=== PATIENT | male | born 1950 | race Caucasian/White ===

== ENCOUNTER 2016-10-29 22:06 | Inpatient (IN) | payer OTHER, MEDICARE ==
[~2016-10-29] VITALS: Ht 177.8 cm; Wt 95.3 kg
[~2016-10-29 22:06] MED LIST: ATOR20TA58 PO; LISI10TA2 PO; METF500T9 PO
[2016-10-29] MEDS ORDERED: ONDANSETRON PF 4 MG/2 ML VIAL. IV ONE (23:15)
[2016-10-29] MEDS ORDERED: CEFAZOLIN 1GM IVPB FOR OMNI 50 ML IV ONE (23:15)
[2016-10-29] MEDS ORDERED: FENTANYL PF 100 MCG/2 ML VIAL. IV ONE (23:15)
[2016-10-29] MEDS: IV NORMAL SALINE 1000ML BAG 1,000 ML IV SCH (23:23)
[2016-10-29 23:25] LABS: BASO # 0.1 x10^3/uL (0.0-0.2); BASO % 1 % (0-3); EOS % 1 % (0-3); HEMATOCRIT 49.5 % (39.0-53.0); HEMOGLOBIN 16.7 g/dL (13.0-17.5); LYMPH # 3.3 x10^3/uL (1.0-4.8); LYMPH % 44 % (24-48); MEAN CORPUSCULAR HEMOGLOBIN 31 pg (25-35); MEAN CORPUSCULAR HGB CONC 34 g/dL (31-37); MEAN CORPUSCULAR VOLUME 92 fL (79-100); MONO % 6 % (0-9); NEUT % 48 % (31-73); PLATELET COUNT 161 x10^3/uL (140-400); RED CELL DISTRIBUTION WIDTH 13.1 % (11.5-14.5); WHITE BLOOD COUNT 7.7 x10^3/uL (4.0-11.0)
[2016-10-29] MEDS ORDERED: ONDANSETRON PF 4 MG/2 ML VIAL. IV PRN (23:30)
[2016-10-29 23:34] LABS: CALCIUM 9.6 mg/dL (8.5-10.1); CREATININE 1.1 mg/dL (0.7-1.3); GFR 67.2; POTASSIUM 4.2 mmol/L (3.5-5.1)
[2016-10-29 23:35] LABS: PROTHROMBIN TIME PATIENT 12.6 SEC (11.7-14.0)
[2016-10-29 23:39] LABS: ALBUMIN 4.3 g/dL (3.4-5.0); ALBUMIN/GLOBULIN RATIO 1.3 (1.0-1.7); TOTAL BILIRUBIN 0.3 mg/dL (0.2-1.0); TOTAL PROTEIN 7.7 g/dL (6.4-8.2)
--- NOTE | 2016-10-29 23:44 | PHYS DOC ---
Past Medical History Past Medical History: Diabetes-Type II, High Cholesterol, Hypertension Past Surgical History: No Surgical History Additional Past Surgical Histo: prostate removed Alcohol Use: Heavy Drug Use: None Adult General Chief Complaint Chief Complaint: SHOULDER INJURY HPI HPI 66-year-old male states that he tripped over his steps fell down and landed on the greater tubercle of his left shoulder. He immediately felt an intense pain over his left clavicle. He states the pain was 10 over 10. He does state he was drinking alcohol today. He states the pain is much worse with any movement of his arm. [] Review of Systems Review of Systems Constitutional: Denies fever or chills [] Eyes: Denies change in visual acuity, redness, or eye pain [] HENT: Denies nasal congestion or sore throat [] Respiratory: Denies cough or shortness of breath [] Cardiovascular: No additional information not addressed in HPI [] GI: Denies abdominal pain, nausea, vomiting, bloody stools or diarrhea [] : Denies dysuria or hematuria [] Musculoskeletal: Left shoulder pain [] Integument: Denies rash or skin lesions [] Neurologic: Denies headache, focal weakness or sensory changes [] Endocrine: Denies polyuria or polydipsia [] Current Medications Current Medications Current Medications Medications (Trade) Dose Ordered Sig/Dino Start Time Stop Time Status Last Admin Dose Admin Cefazolin Sodium (Ancef 1gm Ivpb For Omni) 50 ml @ 100 mls/hr 1X ONCE 10/29/16 23:15 10/29/16 23:44 10/29/16 23:22 100 MLS/HR Fentanyl Citrate (Fentanyl 2ml Vial) 50 mcg 1X ONCE 10/29/16 23:15 10/29/16 23:16 DC 10/29/16 23:21 50 MCG Ondansetron HCl 4 mg 4 mg 1X ONCE 10/29/16 23:15 10/29/16 23:16 DC 10/29/16 23:21 4 MG Allergies Allergies Allergies Coded Allergies Type Severity Reaction Last Updated Verified Penicillins Allergy Intermediate 06/18/15 Yes Physical Exam Physical Exam Constitutional: Well developed, well nourished, moderate distress, non-toxic appearance. [] HENT: Normocephalic, atraumatic, bilateral external ears normal, oropharynx moist, no oral exudates, nose normal. [] Eyes: PERRLA, EOMI, conjunctiva normal, no discharge. [] Neck: Normal range of motion, no tenderness, supple, no stridor. [] Cardiovascular:Heart rate regular rhythm, no murmur [] Lungs & Thorax: Bilateral breath sounds clear to auscultation [] Abdomen: Bowel sounds normal, soft, no tenderness, no masses, no pulsatile masses. [] Skin: Small puncture wound over the fracture site near the left clavicle [] Back: No tenderness, no CVA tenderness. [] Extremities: Left clavicle is tender to palp with crepitus Neurologic: Alert and oriented X 3, normal motor function, normal sensory function, no focal deficits noted. [] Psychologic: Affect normal, judgement normal, mood normal. [] Current Patient Data Vital Signs Vital Signs Date Time Temp Pulse Resp B/P Pulse Ox O2 Delivery O2 Flow Rate FiO2 10/29/16 22:13 97.7 80 20 123/70 97 Room Air 97.7 Lab Values Laboratory Tests Test 10/29/16 22:00 White Blood Count 7.7x10^3/uL (4.0-11.0) Red Blood Count 5.40x10^6/uL (4.30-5.70) Hemoglobin 16.7g/dL (13.0-17.5) Hematocrit 49.5% (39.0-53.0) Mean Corpuscular Volume 92fL (79-100) Mean Corpuscular Hemoglobin 31pg (25-35) Mean Corpuscular Hemoglobin Concent 34g/dL (31-37) Red Cell Distribution Width 13.1% (11.5-14.5) Platelet Count 161x10^3/uL (140-400) Neutrophils (%) (Auto) 48% (31-73) Lymphocytes (%) (Auto) 44% (24-48) Monocytes (%) (Auto) 6% (0-9) Eosinophils (%) (Auto) 1% (0-3) Basophils (%) (Auto) 1% (0-3) Neutrophils # (Auto) 3.7x10^3uL (1.8-7.7) Lymphocytes # (Auto) 3.3x10^3/uL (1.0-4.8) Monocytes # (Auto) 0.5x10^3/uL (0.0-1.1) Eosinophils # (Auto) 0.1x10^3/uL (0.0-0.7) Basophils # (Auto) 0.1x10^3/uL (0.0-0.2) Prothrombin Time 12.6SEC (11.7-14.0) Prothrombin Time INR 1.0 (0.8-1.1) Sodium Level 142mmol/L (136-145) Potassium Level 4.2mmol/L (3.5-5.1) Chloride Level 106mmol/L (98-107) Carbon Dioxide Level 22mmol/L (21-32) Anion Gap 14 (6-14) Blood Urea Nitrogen 13mg/dL (8-26) Creatinine 1.1mg/dL (0.7-1.3) Estimated GFR (Cockcroft-Gault) 67.2 BUN/Creatinine Ratio 12 (6-20) Glucose Level 154mg/dL (70-99) H Calcium Level 9.6mg/dL (8.5-10.1) Total Bilirubin 0.3mg/dL (0.2-1.0) Aspartate Amino Transferase (AST) Pending Alanine Aminotransferase (ALT) 49U/L (16-63) Alkaline Phosphatase 54U/L (46-116) Total Protein 7.7g/dL (6.4-8.2) Albumin 4.3g/dL (3.4-5.0) Albumin/Globulin Ratio 1.3 (1.0-1.7) Ethyl Alcohol Level 162mg/dL (0-10) H Laboratory Tests 10/29/16 22:00 Laboratory Tests 10/29/16 22:00 EKG EKG [] Radiology/Procedures Radiology/Procedures [] Impressions: Clavicle x-ray: Comminuted displaced fracture distal third of the left clavicle Course & Med Decision Making Course & Med Decision Making Pertinent Labs and Imaging studies reviewed. (See chart for details) [ED course: Evaluation reveals 66-year-old male with an obvious open comminuted fracture of the left clavicle. Patient was placed in a sling. He was given fentanyl for pain which did help alleviate the discomfort. I spoke with Dr. Novoa who asked that we admit the patient and he would take him to the OR in the morning.] Dragon Disclaimer Dragon Disclaimer This electronic medical record was generated, in whole or in part, using a voice recognition dictation system. Departure Departure Impression: Primary Impression: Fracture, clavicle, shaft, open Disposition: 09 ADMITTED INPATIENT Admitting Physician: Bruce Okeefe Condition: STABLE Referrals: WILL KEANE DO (PCP) Problem Qualifiers Primary Impression: Fracture, clavicle, shaft, open Encounter type: initial encounter Fracture alignment: displaced Laterality : left Qualified Code: S42.022B - Displaced fracture of shaft of left clavicle, initial encounter for open fracture KLAUDIA COWAN DO Oct 29, 2016 23:44
[2016-10-30] VITALS (14 sets, daily range): BP systolic 110–147; BP diastolic 68–92
[2016-10-30] MEDS ORDERED: ICOS1CAP PO (00:26)
[2016-10-30] MEDS ORDERED: MULT-208 PO (00:27)
[2016-10-30] MEDS ORDERED: CHOL100013 PO (00:27)
--- NOTE | 2016-10-30 00:52 | ACF ---
Admission Forms Criteria MUSCULOSKELETAL DISEASE GRG Clinical Indications for Admission to Inpatient Care (Place 'X' for any and all applicable criteria): Hospital admission is needed for appropriate care of the patient because of ANY ONE of the following: [X]I. Fracture, dislocation, or other musculoskeletal injury requiring inpatient care(medical) as indicated by ANY ONE of the following(4)(5)(6)(7) [ ]a) Vertebral fracture requiring observation for instability or neurologic compromise (8) [ ]b) Compartment syndrome (proven or cannot be ruled out during observation level of care) (9) [ ]c) Limb-threatening injury [X]d) Major injury requiring inpatient stabilization such as traction initiation or external fixation before internal fixation or closure of complex or open fracture [ ]e) Major injury requiring inpatient treatment after emergency or observation level care (as appropriate) [ ]f) Severe pain requiring acute inpatient management [ ]II. Newly diagnosed or suspected bone, joint, or orthopedic device infection (e.g., osteomyelitis, septic arthritis) needing ANY ONE of the following(1)(2)(3) [ ]a) IV antibiotics that cannot be initiated in other than inpatient setting (e.g., patient too unstable or home infusion not available) [ ]b) Device removal or replacement [ ]c) Bone or soft tissue debridement [ ]d) Joint drainage (drain placement or repetitive aspirations) [ ]III. Severe rheumatologic disease (e.g., systemic lupus erythematosus, rheumatoid arthritis) with complications or comorbidities (Also use Optimal Recovery Care Criteria or General Recovery Criteria as appropriate on the basis of predominant condition), including ANY ONE of the following(10 )(11)(12)(13) [ ]a) Severe infection (e.g., GLUER MACHINE OPERATOR infection, sepsis) (14) [ ]b) Respiratory complications, including ANY ONE of the following: [ ]i) Pleural effusion with respiratory compromise [ ]ii) Pulmonary hypertension with congestive failure [ ]iii) Respiratory failure [ ]iv) Pulmonary hemorrhage (15) [ ]c) Hematologic disease, including ANY ONE of the following: [ ]i) Coagulopathy with bleeding [ ]ii) Thrombosis with hypercoagulable state [ ]iii) Thrombotic thrombocytopenic purpura [ ]d) Cerebritis with seizures, psychosis, or other severe abnormalities [ ]e) Vertebral destruction with monitoring needed for cervical myelopathy& possible respiratory compromise [ ]f) Exacerbation that requires inpatient treatment (e.g., intravenous immunosuppression) (16) [ ]g) Acute renal failure [ ]IV. Severe vasculitis with complications or comorbidities (Also use Optimal Recovery Care Criteria or General Recovery Criteria as appropriate on the basis of predominant condition), including ANY ONE of the following(11)(12)(17)(18)(19)(20) [ ]a) GLUER MACHINE OPERATOR vasculitis with seizures, psychosis, or other severe abnormalities (22) [ ]b) Renal failure (16) [ ]c) Pulmonary hemorrhage (15) [ ]d) Cerebral infarction [ ]e) Gastrointestinal ischemia [ ]f) Gangrene or threatened amputation [ ]g) Exacerbation that requires inpatient treatment (e.g., intravenous immunosuppression) (19)(21) [ ]V. Severe myopathy as indicated by ANY ONE of the following (28)(29) [ ]a) New onset of airway compromise or inability to swallow [ ]b) Respiratory deterioration with observation needed for impending respiratory failure [ ]c) Exacerbation that requires inpatient treatment (e.g., intravenous immunosuppression) [ ]. Severe gout (crystal arthropathy) as indicated by ANY ONE of the following (23)(24) [ ]a) Severe pain requiring acute inpatient management [ ]b) Exacerbation that requires inpatient treatment (e.g., intravenous treatment) [ ]VII.Rhabdomyolysis and ANY ONE of the following (25)(26)(27) [ ]a) Acute renal failure [ ]b) Need for intravenous hydration after emergency or observation level care (as appropriate) [ ]c) Inability to maintain oral hydration [ ]d) Change in mental status [ ]e) Electrolyte abnormality that remains after emergency or observation level care (as appropriate) [ ]VIII Post amputation complication, as indicated by ANY ONE of the following [ ]a) Infection [ ]b) Dehiscence [ ]c) Myodesis failure [ ]IX. Severe pain requiring acute inpatient management as indicated by ALL of the following (30)(31)(32) [ ]a) Continuous or frequent (e.g., every 2 to 4 hrs) parenteral analgesics required [A] [ ]b) Rapid improvement expected from treatment or acute intervention ( e.g., surgery, anesthesia procedure[B] [ ]X. Musculoskeletal Disease and ALL of the following: [ ]a) Symptom or finding for which emergency and observation care have failed or are not considered appropriate (Use General Criteria: Observation Care as appropriate) [ ]b) Presence of ANY ONE of the following [ ]i) A General Admission Criteria [ ]ii) A Pediatric General Admission Criteria The original [facility] content created by [facility] has been revised. The portions of the content which have been revised are identified through the use of italic text or in bold, and [facility] has neither reviewed nor approved the modified material. All other unmodified content is copyright [facility]. Please see references footnoted in the original [facility] edition 2016 Admission Criteria Met?: Yes DELMAR RAPP Oct 30, 2016 00:52
[2016-10-30] MEDS ORDERED: PNEUMOCOCCAL VAX SCREEN BY RX. MC ONE (01:00)
[2016-10-30] MEDS: FENTANYL PF 100 MCG/2 ML VIAL. IV PRN ×3 (01:25→07:33)
[2016-10-30] MEDS: IV NORMAL SALINE 1000ML BAG 1,000 ML IV SCH ×2 (07:35→17:03)
--- NOTE | 2016-10-30 08:05 | RAD ---
EXAM: Left clavicle, 2 views. HISTORY: Trauma. COMPARISON: None. FINDINGS: 2 views of the left clavicle are obtained. There is a comminuted fracture of the left mid clavicle with a shaft width displacement along the main fracture line. There is moderate acromioclavicular spurring. There is no shoulder dislocation. IMPRESSION: 1. Comminuted left clavicle fracture. 2. Moderate left acromioclavicular osteoarthritis.
[2016-10-30] MEDS ORDERED: FENTANYL PF 100 MCG/2 ML VIAL. ONE (08:25)
[2016-10-30] MEDS ORDERED: LIDOCAINE 2% 100 MG/5 ML DISP.SYRIN. ONE (08:25)
[2016-10-30] MEDS ORDERED: PROPOFOL 20 ML IV ONE (08:25)
[2016-10-30] MEDS ORDERED: BUPIVACAINE-EPI 0.25%-1:200000 MPF 30 ML VIAL. ONE ×2 (08:34→10:55)
[2016-10-30] MEDS ORDERED: PNEUMOC CONJ VACC 23-VALENT 0.5 ML VIAL. VAX IM ONE (09:00)
--- NOTE | 2016-10-30 09:00 | RAD ---
EXAM: Left ribs, 4 views. HISTORY: Pain. COMPARISON: None. FINDINGS: 4 views of the ribs are obtained. There are minimally displaced fractures of the left seventh and eighth ribs. There is a comminuted fracture of the left mid clavicle. There is moderate left acromioclavicular osteoarthritis. There is left lower lobe atelectasis or pleural-parenchymal scarring. There are degenerative changes throughout the thoracic spine. IMPRESSION: 1. Suspected minimally displaced left seventh and eighth rib fractures. Correlate for pain in this location. 2. Comminuted left mid clavicle fracture.
[2016-10-30] MEDS ORDERED: IV RINGERS,LACTATED 1000ML 1,000 ML IV SCH (09:14)
[2016-10-30] MEDS ORDERED: FENTANYL PF 100 MCG/2 ML VIAL. IV PRN ×3 (09:15→11:30)
[2016-10-30] MEDS ORDERED: HYDROMORPHONE 2 MG/ML VIAL. IV PRN (09:15)
[2016-10-30] MEDS ORDERED: MORPHINE SULFATE 2 MG/ML DISP.SYRIN. IV PRN ×3 (09:15→11:30)
[2016-10-30] MEDS ORDERED: LIDOCAINE 1% 1 ML SYRINGE. ID PRN (09:15)
[2016-10-30] MEDS ORDERED: ONDANSETRON PF 4 MG/2 ML VIAL. IV PRN ×2 (09:15→11:30)
[2016-10-30] MEDS ORDERED: PROCHLORPERAZINE 10 MG/2 ML VIAL. IV PRN (09:15)
[2016-10-30] MEDS ORDERED: CEFAZOLIN 1GM IVPB FOR OMNI 50 ML IV ONE (09:22)
[2016-10-30] MEDS ORDERED: SUCCINYLCHOLINE 200 MG/10 ML VIAL. ONE (09:24)
[2016-10-30] MEDS ORDERED: OXYCODONE/APAP 10/325 TABLET. PO PRN (09:45)
[2016-10-30] MEDS ORDERED: OXYCODONE/APAP 5/325 TABLET. PO PRN (09:45)
[2016-10-30] MEDS ORDERED: DEXAMETHASONE SOD PHOS 20 MG/5 ML VIAL. ONE (09:51)
[2016-10-30] MEDS ORDERED: DESFLURANE 61 TO 120 MINUTES IH ONE (09:51)
[2016-10-30] MEDS ORDERED: ACETAMINOPHEN INTRAVENOUS 100 ML IV ONE (09:56)
[2016-10-30] MEDS ORDERED: ONDANSETRON PF 4 MG/2 ML VIAL. ONE (10:19)
[2016-10-30] MEDS ORDERED: EPHEDRINE PF IN SALINE 50 MG/5 ML DISP.SYRIN. IV ONE (10:23)
--- NOTE | 2016-10-30 11:22 | PDOC ---
BRIEF OPERATIVE NOTE Date: Oct 30, 2016 Pre-Op Diagnosis Open left clavicle shaft fracture Post-Op Diagnosis Open left clavicle shaft fracture Procedure Performed Open treatment with internal fixation left clavicle shaft fracture. Debridement for open fracture including fragments of devitalized bone. Surgeon Sommer Cloth Mercerizer Operator Kirit CARRILLO Anesthesiologist [place] Anesthesia Type: General Blood Loss 50 mL Specimens Obtained None Findings Open left clavicle shaft fracture, Gustilo grade 1. Extensively comminuted clavicle shaft fracture. Complications None Additional Remarks Dictation [id number] MARIO DOWNEY MD Oct 30, 2016 11:22
[2016-10-30] MEDS ORDERED: POLYETHYLENE GLYCOL 3350 17 GM PACKET. PO PRN (11:30)
[2016-10-30] MEDS ORDERED: OXYCODONE IR 5 MG TABLET. PO PRN (11:30)
[2016-10-30] MEDS ORDERED: MORPHINE SULFATE 4 MG/ML DISP.SYRIN. IV PRN (11:30)
[2016-10-30] MEDS ORDERED: DEXTROSE 50% 25 GM / 50ML DISP.SYRIN. IV PRN (11:30)
[2016-10-30] MEDS ORDERED: HYDROCODONE/APAP 7.5/325MG TABLET. PO PRN (11:30)
--- NOTE | 2016-10-30 11:32 | PDOC2 ---
CONSULT Date of Consult Date of Consult DATE: 10/30/16 TIME: 11:22 Reason for Consult Reason for Consult: Open left clavicle shaft fracture Referring Physician Referring Physician: Omar Identification/Chief Complaint Chief Complaint Left shoulder pain, left rib pain Source Source: Chart review, Patient History of Present Illness Reason for Visit: This 66-year-old right-handed retired man who enjoys playing golf fell yesterday after having some alcoholic drinks. He had an open clavicle shaft fracture was admitted to the hospital placed on antibiotics. I recommended urgent surgery and discussed that with him this morning. He has a history of West Nile virus about 18 months ago with some left-sided shoulder stiffness, and left-sided weakness. He has been doing physical therapy previously for his left shoulder and we discussed that he should be able to resume that if we plate his clavicle shaft fracture. We discussed nonoperative treatment briefly, however with the grade 1 open fracture operative treatment is preferred so that we can do a careful irrigation, help prevent infection. Also with plate fixation it is likely he will be able to resume activity sooner and likely have a more satisfactory result. Past Medical History Cardiovascular: HTN, CT, Hyperlipidemia CENTRAL NERVOUS SYSTEM: Other (West Nile virus) Current Problem List Problem List Problems Medical Problems: (1) Fracture, clavicle, shaft, open Status: Acute Current Medications Current Medications Current Medications Fentanyl Citrate (Fentanyl 2ml Vial) 50 mcg 1X ONCE IV Last administered on 23:21; Start 10/29/16 at 23:15; Stop 10/29/16 at 23:16; Status DC Ondansetron HCl 4 mg 4 mg 1X ONCE IV Last administered on 10/29/16 23:21; Start 10/29/16 at 23:15; Stop 10/29/16 at 23:16; Status DC Cefazolin Sodium (Ancef 1gm Ivpb For Omni) 50 ml @ 100 mls/hr 1X ONCE IV Last administered on 10/29/16 23:22; Start 10/29/16 at 23:15; Stop 10/29/16 at 23:44; Status DC Ondansetron HCl (Zofran) 4 mg PRN Q8HRS PRN IV NAUSEA/VOMITING; Start 10/29/16 at 23:30; Stop 10/30/16 at 23:29 Fentanyl Citrate 50 mcg 50 mcg PRN Q1HR PRN IV PAIN Last administered on 07:33; Start 10/29/16 at 23:30; Stop 10/30/16 at 23:29 Sodium Chloride (Iv Sodium Chloride 0.9% 1000ml Bag) 1,000 ml @ 125 mls/hr Q8H IV Last administered on 10/30/16 07:35; Start 10/29/16 at 23:30; Stop at 23:29 Pneumococcal Polyvalent Vaccine (Do NOT chart on this placeholder) 1 each 1X ONCE MC ; Start 10/30/16 at 01:00; Stop 10/30/16 at 01:01; Status UNV Pneumococcal Polyvalent Vaccine 0.5 ml 0.5 ml ONCE ONCE VAX IM ; Start 10/30/16 at 09:00; Stop 10/30/16 at 09:01; Status DC Propofol (Diprivan) 20 ml @ As Directed STK-MED ONCE IV ; Start 10/30/16 at 08: 25; Stop 10/30/16 at 08:26; Status DC Lidocaine HCl 100 mg STK-MED ONCE .ROUTE ; Start 10/30/16 at 08:25; Stop at 08:26; Status DC Fentanyl Citrate (Fentanyl 2ml Vial) 100 mcg STK-MED ONCE .ROUTE ; Start at 08:25; Stop 10/30/16 at 08:26; Status DC Bupivacaine HCl/ Epinephrine Bitart (Sensorcaine-Epi 0.25%-1:993216 Mpf) 30 ml STK-MED ONCE .ROUTE Last administered on 10/30/16 10:09; Start 10/30/16 at 08: 34; Stop 10/30/16 at 08:35; Status DC Ondansetron HCl (Zofran) 4 mg PRN Q6HRS PRN IV Nausea; Start 10/30/16 at 09:15 ; Stop 10/31/16 at 09:14 Fentanyl Citrate (Fentanyl 2ml Vial) 25 mcg PRN Q5MIN PRN IV MILD PAIN; Start 10/30/16 at 09:15; Stop 10/31/16 at 09:14 Fentanyl Citrate (Fentanyl 2ml Vial) 50 mcg PRN Q5MIN PRN IV MODERATE PAIN; Start 10/30/16 at 09:15; Stop 10/31/16 at 09:14 Morphine Sulfate 1 mg 1 mg PRN Q10MIN PRN IV SEVERE PAIN; Start 10/30/16 at 09: 15; Stop 10/31/16 at 09:14 Lactated Ringer's (Iv Lactated Ringers) 1,000 ml @ 0 mls/hr Q0M IV ; Start at 09:14; Stop 10/30/16 at 21:13 Lidocaine HCl 2 ml 1X PRN PRN ID IV START; Start 10/30/16 at 09:15; Stop at 09:14 Hydromorphone HCl (Dilaudid) 0.5 mg PRN Q10MIN PRN IV SEV PAIN,Second choice; Start 10/30/16 at 09:15; Stop 10/31/16 at 09:14 Prochlorperazine Edisylate 5 mg 5 mg PACU PRN PRN IV NAUSEA; Start 10/30/16 at 09:15; Stop 10/31/16 at 09:14 Cefazolin Sodium (Ancef 1gm Ivpb For Omni) 50 ml @ As Directed STK-MED ONCE IV ; Start 10/30/16 at 09:22; Stop 10/30/16 at 09:23; Status DC Succinylcholine Chloride (Anectine) 200 mg STK-MED ONCE .ROUTE ; Start 10/30/16 at 09:24; Stop 10/30/16 at 09:25; Status DC Oxycodone/ Acetaminophen (Percocet 10/325) 1 tab PRN Q4HRS PRN PO pain; Start 10/30/16 at 09:45 Oxycodone/ Acetaminophen (Percocet 5/325) 1 tab PRN Q4HRS PRN PO PAIN; Start at 09:45 Morphine Sulfate 2 mg PRN Q2HR PRN IV PAIN; Start 10/30/16 at 09:45 Dexamethasone Sodium Phosphate (Decadron) 20 mg STK-MED ONCE .ROUTE ; Start at 09:51; Stop 10/30/16 at 09:52; Status DC Desflurane 60 ml 60 ml STK-MED ONCE IH ; Start 10/30/16 at 09:51; Stop 10/30/16 at 09:52; Status DC Acetaminophen (Ofirmev) 100 ml @ As Directed STK-MED ONCE IV ; Start 10/30/16 at 09:56; Stop 10/30/16 at 09:57; Status DC Ondansetron HCl (Zofran) 4 mg STK-MED ONCE .ROUTE ; Start 10/30/16 at 10:19; Stop 10/30/16 at 10:20; Status DC Ephedrine Sulfate 50 mg STK-MED ONCE IV ; Start 10/30/16 at 10:23; Stop at 10:24; Status DC Bupivacaine HCl/ Epinephrine Bitart (Sensorcaine-Epi 0.25%-1:135606 Mpf) 30 ml STK-MED ONCE .ROUTE ; Start 10/30/16 at 10:55; Stop 10/30/16 at 10:56; Status DC Atorvastatin Calcium (Lipitor) 20 mg HS PO ; Start 10/30/16 at 21:00 Lisinopril (Prinivil) 10 mg DAILY PO ; Start 10/30/16 at 12:00 Metformin HCl (Glucophage Xr) 500 mg DAILYWBKFT PO ; Start 10/30/16 at 12:00 Vitamin D (Vitamin D3) 1,000 unit DAILY PO ; Start 10/30/16 at 12:00 Multivitamins/ Calcium (Thera M Plus) 1 tab DAILY PO ; Start 10/30/16 at 12:00 Active Scripts Active Reported Multi-Day Vitamins (Multivitamin) 1 Each Tablet 1 Tab PO DAILY Vascepa (Icosapent Ethyl) 1 Gm Capsule 2 Gm PO Lisinopril 10 Mg Tablet 10 Mg PO DAILY Atorvastatin Calcium 20 Mg Tablet 20 Mg PO HS Metformin Hcl Er (Metformin Hcl) 500 Mg Tab.er.24h 500 Mg PO DAILYWBKFT Allergies Allergies: Coded Allergies: Penicillins (Verified Allergy, Intermediate, 10/30/16) Physical Exam General: Alert, Cooperative HEENT: Atraumatic Lungs: Normal air movement, Other (tender on the left ribs, but good air movement.) Heart: Regular rate, Other (earlobe creases) Abdomen: Soft Extremities: Normal pulses Skin: Other (less than 1 cm puncture wound over the clavicle shaft fracture. No other skin lesions of significance. He has some skin tattoos on the chest.) Neuro: Normal speech, Sensation intact Psych/Mental Status: Mental status NL, Mood NL MUSCULOSKELETAL: Abnormal exam of left (tenderness over the left shoulder. Difficulty elevating the arm due to pain. He demonstrated motor function of the radial ulnar and median nerve distally and had an intact radial pulse. Sensation intact to the hand.) Vitals VITALS Vital Signs Date Time Temp Pulse Resp B/P Pulse Ox O2 Delivery O2 Flow Rate FiO2 10/30/16 08:03 Room Air 10/30/16 07:00 98.0 80 16 128/78 92 98.0 Labs Labs Laboratory Tests Test 10/29/16 22:00 10/30/16 07:37 White Blood Count 7.7x10^3/uL (4.0-11.0) Red Blood Count 5.40x10^6/uL (4.30-5.70) Hemoglobin 16.7g/dL (13.0-17.5) Hematocrit 49.5% (39.0-53.0) Mean Corpuscular Volume 92fL (79-100) Mean Corpuscular Hemoglobin 31pg (25-35) Mean Corpuscular Hemoglobin Concent 34g/dL (31-37) Red Cell Distribution Width 13.1% (11.5-14.5) Platelet Count 161x10^3/uL (140-400) Neutrophils (%) (Auto) 48% (31-73) Lymphocytes (%) (Auto) 44% (24-48) Monocytes (%) (Auto) 6% (0-9) Eosinophils (%) (Auto) 1% (0-3) Basophils (%) (Auto) 1% (0-3) Neutrophils # (Auto) 3.7x10^3uL (1.8-7.7) Lymphocytes # (Auto) 3.3x10^3/uL (1.0-4.8) Monocytes # (Auto) 0.5x10^3/uL (0.0-1.1) Eosinophils # (Auto) 0.1x10^3/uL (0.0-0.7) Basophils # (Auto) 0.1x10^3/uL (0.0-0.2) Prothrombin Time 12.6SEC (11.7-14.0) Prothromb Time International Ratio 1.0 (0.8-1.1) Sodium Level 142mmol/L (136-145) Potassium Level 4.2mmol/L (3.5-5.1) Chloride Level 106mmol/L (98-107) Carbon Dioxide Level 22mmol/L (21-32) Anion Gap 14 (6-14) Blood Urea Nitrogen 13mg/dL (8-26) Creatinine 1.1mg/dL (0.7-1.3) Estimated GFR (Cockcroft-Gault) 67.2 BUN/Creatinine Ratio 12 (6-20) Glucose Level 154mg/dL (70-99) Calcium Level 9.6mg/dL (8.5-10.1) Total Bilirubin 0.3mg/dL (0.2-1.0) Aspartate Amino Transf (AST/SGOT) 42U/L (15-37) Alanine Aminotransferase (ALT/SGPT) 49U/L (16-63) Alkaline Phosphatase 54U/L (46-116) Total Protein 7.7g/dL (6.4-8.2) Albumin 4.3g/dL (3.4-5.0) Albumin/Globulin Ratio 1.3 (1.0-1.7) Ethyl Alcohol Level 162mg/dL (0-10) Glucose (Fingerstick) 101mg/dL (70-99) Laboratory Tests Test 10/29/16 22:00 10/30/16 07:37 White Blood Count 7.7x10^3/uL (4.0-11.0) Red Blood Count 5.40x10^6/uL (4.30-5.70) Hemoglobin 16.7g/dL (13.0-17.5) Hematocrit 49.5% (39.0-53.0) Mean Corpuscular Volume 92fL (79-100) Mean Corpuscular Hemoglobin 31pg (25-35) Mean Corpuscular Hemoglobin Concent 34g/dL (31-37) Red Cell Distribution Width 13.1% (11.5-14.5) Platelet Count 161x10^3/uL (140-400) Neutrophils (%) (Auto) 48% (31-73) Lymphocytes (%) (Auto) 44% (24-48) Monocytes (%) (Auto) 6% (0-9) Eosinophils (%) (Auto) 1% (0-3) Basophils (%) (Auto) 1% (0-3) Neutrophils # (Auto) 3.7x10^3uL (1.8-7.7) Lymphocytes # (Auto) 3.3x10^3/uL (1.0-4.8) Monocytes # (Auto) 0.5x10^3/uL (0.0-1.1) Eosinophils # (Auto) 0.1x10^3/uL (0.0-0.7) Basophils # (Auto) 0.1x10^3/uL (0.0-0.2) Prothrombin Time 12.6SEC (11.7-14.0) Prothromb Time International Ratio 1.0 (0.8-1.1) Sodium Level 142mmol/L (136-145) Potassium Level 4.2mmol/L (3.5-5.1) Chloride Level 106mmol/L (98-107) Carbon Dioxide Level 22mmol/L (21-32) Anion Gap 14 (6-14) Blood Urea Nitrogen 13mg/dL (8-26) Creatinine 1.1mg/dL (0.7-1.3) Estimated GFR (Cockcroft-Gault) 67.2 BUN/Creatinine Ratio 12 (6-20) Glucose Level 154mg/dL (70-99) Calcium Level 9.6mg/dL (8.5-10.1) Total Bilirubin 0.3mg/dL (0.2-1.0) Aspartate Amino Transf (AST/SGOT) 42U/L (15-37) Alanine Aminotransferase (ALT/SGPT) 49U/L (16-63) Alkaline Phosphatase 54U/L (46-116) Total Protein 7.7g/dL (6.4-8.2) Albumin 4.3g/dL (3.4-5.0) Albumin/Globulin Ratio 1.3 (1.0-1.7) Ethyl Alcohol Level 162mg/dL (0-10) Glucose (Fingerstick) 101mg/dL (70-99) Images Images Report and x-rays were reviewed. He has an extensively comminuted/butterfly fragments mid third clavicle shaft fracture. 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 Rib x-rays were also reviewed and reports reviewed. There are fractures of definitely the eighth rib and probably the seventh rib. He had tenderness in these locations on exam consistent with fractures and also said the rib fractures were more painful than the clavicle fracture. Assessment/Plan Assessment/Plan I spoke to him about the risks benefits and alternatives of open treatment of the clavicle shaft fracture including debridement of the open fracture as well as fixation. We discussed the potential risks such as infection nonunion malunion bleeding need for hardware removal or other potential surgical or anesthetic complications. I explained the expected area of numbness in the supraclavicular nerve distribution. I explained that we can try nonoperative treatment but with the probable open fracture risks of infection nonunion and delayed healing are significant. He stated understanding of the risks benefits and alternatives and desires to proceed with surgery. He will be to do some physical therapy postoperatively, partly due to his prior shoulder stiffness. Generally I would have a 2 pound lifting restriction for at least 6 weeks postoperatively but otherwise allow him to begin range of motion as tolerated. For the rib fractures I recommended pain medication, frequent coughing and deep breathing, incentive spirometry, etc. I explained that he needs to avoid splinting his breathing, so that he does not get pneumonia, atelectasis, or other pulmonary complications from the rib fractures. MARIO DOWNEY MD Oct 30, 2016 11:32
--- NOTE | 2016-10-30 11:43 | EKG ---
[facility] [address] [place] [address] Test Date: 2016-10-29 Test Time: 23:32:56 Pat Name: NIR WALLER Department: Room: 410 Gender: M Rivet Catcher: : [id number] Requested By: KLAUDIA COWAN Order Number: [id number] Reading MD: Kvng Aragon Measurements Intervals [place] Rate: 85 P: 41 SC: 168 QRS: -6 QRSD: 84 T: 11 QT: 338 QTc: 407 Interpretive Statements SINUS RHYTHM Electronically Signed On 10-31-2016 10:37:29 ORTHODONTIST ASSISTANT by Kvng Aragon
--- NOTE | 2016-10-30 12:27 | PDOC1 ---
History and Physical Date of Admission Date of Admission DATE: 10/30/16 TIME: 12:23 Identification/Chief Complaint Chief Complaint open fx left clavicle Source Source: Chart review History of Present Illness History of Present Illness 66 y.o male who is out having sx now for left clavicle open fx. CHart reviewed, pt came from another facility seems like as there is no ER documentation. LAbs reviewed. Pt underwent Open treatment with internal fixation left clavicle shaft fracture. Debridement for open fracture including fragments of devitalized bone. by ortho just now. Will await post op Only remarkable lab is etoh levels 162 Past Medical History Cardiovascular: HTN, [place], Hyperlipidemia CENTRAL NERVOUS SYSTEM: Other (West Nile virus) Past Surgical History Past Surgical History: Other (Open treatment with internal fixation left clavicle shaft fracture. Debridement for open fracture including fragments of devitalized bone.) Family History Family History: No Significant Social History Smoke: No ALCOHOL: heavy Drugs: None Current Problem List Problem List Problems Medical Problems: (1) Fracture, clavicle, shaft, open Status: Acute Problems: Current Medications Current Medications Current Medications Fentanyl Citrate (Fentanyl 2ml Vial) 50 mcg 1X ONCE IV Last administered on 23:21; Start 10/29/16 at 23:15; Stop 10/29/16 at 23:16; Status DC Ondansetron HCl 4 mg 4 mg 1X ONCE IV Last administered on 10/29/16 23:21; Start 10/29/16 at 23:15; Stop 10/29/16 at 23:16; Status DC Cefazolin Sodium (Ancef 1gm Ivpb For Omni) 50 ml @ 100 mls/hr 1X ONCE IV Last administered on 10/29/16 23:22; Start 10/29/16 at 23:15; Stop 10/29/16 at 23:44; Status DC Ondansetron HCl (Zofran) 4 mg PRN Q8HRS PRN IV NAUSEA/VOMITING; Start 10/29/16 at 23:30; Stop 10/30/16 at 23:29 Fentanyl Citrate 50 mcg 50 mcg PRN Q1HR PRN IV PAIN Last administered on 07:33; Start 10/29/16 at 23:30; Stop 10/30/16 at 23:29 Sodium Chloride (Iv Sodium Chloride 0.9% 1000ml Bag) 1,000 ml @ 125 mls/hr Q8H IV Last administered on 10/30/16 07:35; Start 10/29/16 at 23:30; Stop at 23:29 Pneumococcal Polyvalent Vaccine (Do NOT chart on this placeholder) 1 each 1X ONCE MC ; Start 10/30/16 at 01:00; Stop 10/30/16 at 01:01; Status UNV Pneumococcal Polyvalent Vaccine 0.5 ml 0.5 ml ONCE ONCE VAX IM ; Start 10/30/16 at 09:00; Stop 10/30/16 at 09:01; Status DC Propofol (Diprivan) 20 ml @ As Directed STK-MED ONCE IV ; Start 10/30/16 at 08: 25; Stop 10/30/16 at 08:26; Status DC Lidocaine HCl 100 mg STK-MED ONCE .ROUTE ; Start 10/30/16 at 08:25; Stop at 08:26; Status DC Fentanyl Citrate (Fentanyl 2ml Vial) 100 mcg STK-MED ONCE .ROUTE ; Start at 08:25; Stop 10/30/16 at 08:26; Status DC Bupivacaine HCl/ Epinephrine Bitart (Sensorcaine-Epi 0.25%-1:375690 Mpf) 30 ml STK-MED ONCE .ROUTE Last administered on 10/30/16t 10:09; Start 10/30/16 at 08: 34; Stop 10/30/16 at 08:35; Status DC Ondansetron HCl (Zofran) 4 mg PRN Q6HRS PRN IV Nausea; Start 10/30/16 at 09:15 ; Stop 10/31/16 at 09:14 Fentanyl Citrate (Fentanyl 2ml Vial) 25 mcg PRN Q5MIN PRN IV MILD PAIN; Start 10/30/16 at 09:15; Stop 10/31/16 at 09:14 Fentanyl Citrate (Fentanyl 2ml Vial) 50 mcg PRN Q5MIN PRN IV MODERATE PAIN; Start 10/30/16 at 09:15; Stop 10/31/16 at 09:14 Morphine Sulfate 1 mg 1 mg PRN Q10MIN PRN IV SEVERE PAIN; Start 10/30/16 at 09: 15; Stop 10/31/16 at 09:14 Lactated Ringer's (Iv Lactated Ringers) 1,000 ml @ 0 mls/hr Q0M IV ; Start at 09:14; Stop 10/30/16 at 21:13 Lidocaine HCl 2 ml 1X PRN PRN ID IV START; Start 10/30/16 at 09:15; Stop at 09:14 Hydromorphone HCl (Dilaudid) 0.5 mg PRN Q10MIN PRN IV SEV PAIN,Second choice; Start 10/30/16 at 09:15; Stop 10/31/16 at 09:14 Prochlorperazine Edisylate 5 mg 5 mg PACU PRN PRN IV NAUSEA; Start 10/30/16 at 09:15; Stop 10/31/16 at 09:14 Cefazolin Sodium (Ancef 1gm Ivpb For Omni) 50 ml @ As Directed STK-MED ONCE IV ; Start 10/30/16 at 09:22; Stop 10/30/16 at 09:23; Status DC Succinylcholine Chloride (Anectine) 200 mg STK-MED ONCE .ROUTE ; Start 10/30/16 at 09:24; Stop 10/30/16 at 09:25; Status DC Oxycodone/ Acetaminophen (Percocet 10/325) 1 tab PRN Q4HRS PRN PO pain; Start 10/30/16 at 09:45 Oxycodone/ Acetaminophen (Percocet 5/325) 1 tab PRN Q4HRS PRN PO PAIN; Start at 09:45 Morphine Sulfate 2 mg PRN Q2HR PRN IV PAIN; Start 10/30/16 at 09:45 Dexamethasone Sodium Phosphate (Decadron) 20 mg STK-MED ONCE .ROUTE ; Start at 09:51; Stop 10/30/16 at 09:52; Status DC Desflurane 60 ml 60 ml STK-MED ONCE IH ; Start 10/30/16 at 09:51; Stop 10/30/16 at 09:52; Status DC Acetaminophen (Ofirmev) 100 ml @ As Directed STK-MED ONCE IV ; Start 10/30/16 at 09:56; Stop 10/30/16 at 09:57; Status DC Ondansetron HCl (Zofran) 4 mg STK-MED ONCE .ROUTE ; Start 10/30/16 at 10:19; Stop 10/30/16 at 10:20; Status DC Ephedrine Sulfate 50 mg STK-MED ONCE IV ; Start 10/30/16 at 10:23; Stop at 10:24; Status DC Bupivacaine HCl/ Epinephrine Bitart (Sensorcaine-Epi 0.25%-1:854644 Mpf) 30 ml STK-MED ONCE .ROUTE Last administered on 10/30/16t 10:09; Start 10/30/16 at 10: 55; Stop 10/30/16 at 10:56; Status DC Atorvastatin Calcium (Lipitor) 20 mg HS PO ; Start 10/30/16 at 21:00 Lisinopril (Prinivil) 10 mg DAILY PO ; Start 10/30/16 at 12:00 Metformin HCl (Glucophage Xr) 500 mg DAILYWBKFT PO ; Start 10/30/16 at 12:00 Vitamin D (Vitamin D3) 1,000 unit DAILY PO ; Start 10/30/16 at 12:00 Multivitamins/ Calcium (Thera M Plus) 1 tab DAILY PO ; Start 10/30/16 at 12:00 Oxycodone HCl (Roxicodone) 5 mg PRN Q3HRS PRN PO PAIN; Start 10/30/16 at 11:30 Morphine Sulfate 2 mg PRN Q1HR PRN IV PAIN; Start 10/30/16 at 11:30 Fentanyl Citrate (Fentanyl 2ml Vial) 25 mcg PRN Q1HR PRN IV PAIN; Start at 11:30 Senna/Docusate Sodium (Senna Plus) 1 tab DAILY PO ; Start 10/31/16 at 09:00 Polyethylene Glycol (miraLAX PACKET) 17 gm PRN DAILY PRN PO CONSTIPATION; Start 10/30/16 at 11:30 Ondansetron HCl (Zofran) 4 mg PRN Q4HRS PRN IV NAUSEA/VOMITING; Start 10/30/16 at 11:30 Aspirin (Amrik Aspirin) 325 mg DAILYWBKFT PO ; Start 10/31/16 at 08:00 Magnesium Hydroxide (Milk Of Magnesia) 2,400 mg 1X PRN PRN PO CONSTIPATION; Start 10/31/16 at 06:00; Stop 11/01/16 at 05:59 Bisacodyl (Dulcolax Supp) 10 mg 1X PRN PRN LA CONSTIPATION; Start 10/31/16 at 16:00; Stop 11/01/16 at 15:59 Acetaminophen/ Hydrocodone Bitart (Lortab 7.5/325) 1 tab PRN Q4HRS PRN PO PAIN ; Start 10/30/16 at 11:30 Morphine Sulfate 4 mg PRN Q2HR PRN IV PAIN; Start 10/30/16 at 11:30 Acetaminophen/ Hydrocodone Bitart (Lortab 7.5/325) 2 tab PRN Q4HRS PRN PO PAIN ; Start 10/30/16 at 11:30 Dextrose 12.5 gm 12.5 gm PRN Q15MIN PRN IV SEE COMMENTS; Start 10/30/16 at 11: 30 Cefazolin Sodium/ Dextrose (Ancef 2gm Premix) 50 ml @ 100 mls/hr Q6H IV ; Start 10/30/16 at 15:30; Stop 10/31/16 at 03:59 Active Scripts Active Reported Multi-Day Vitamins (Multivitamin) 1 Each Tablet 1 Tab PO DAILY Vascepa (Icosapent Ethyl) 1 Gm Capsule 2 Gm PO Lisinopril 10 Mg Tablet 10 Mg PO DAILY Atorvastatin Calcium 20 Mg Tablet 20 Mg PO HS Metformin Hcl Er (Metformin Hcl) 500 Mg Tab.er.24h 500 Mg PO DAILYWBKFT Allergies Allergies: Coded Allergies: Penicillins (Verified Allergy, Intermediate, 10/30/16) ROS Review of System cant be obtained - having sx Physical Exam General: Alert, Oriented X3, Cooperative, No acute distress, Other (out having sx) HEENT: PERRLA Lungs: Clear to auscultation Heart: S1S2, RRR, no thrills Cardiovascular: S1, S2 Abdomen: Normal bowel sounds, Soft, No tenderness, No hepatosplenomegaly, No masses Rectal Exam: not examined Extremities: Other (left clavicle dressing) Skin: No rashes, No breakdown, No significant lesion Neuro: Normal gait, Normal speech, Strength at 5/5 X4 ext, Normal tone, Sensation intact, Cranial nerves 3-12 NL, Reflexes 2+ Psych/Mental Status: Mental status NL, Mood NL Vitals Vitals Vital Signs Date Time Temp Pulse Resp B/P Pulse Ox O2 Delivery O2 Flow Rate FiO2 10/30/16 11:55 Room Air 10/30/16 11:51 97.0 78 20 145/65 91 97.0 10/30/16 11:36 10 Labs Labs Laboratory Tests Test 10/29/16 22:00 10/30/16 07:37 White Blood Count 7.7x10^3/uL (4.0-11.0) Red Blood Count 5.40x10^6/uL (4.30-5.70) Hemoglobin 16.7g/dL (13.0-17.5) Hematocrit 49.5% (39.0-53.0) Mean Corpuscular Volume 92fL (79-100) Mean Corpuscular Hemoglobin 31pg (25-35) Mean Corpuscular Hemoglobin Concent 34g/dL (31-37) Red Cell Distribution Width 13.1% (11.5-14.5) Platelet Count 161x10^3/uL (140-400) Neutrophils (%) (Auto) 48% (31-73) Lymphocytes (%) (Auto) 44% (24-48) Monocytes (%) (Auto) 6% (0-9) Eosinophils (%) (Auto) 1% (0-3) Basophils (%) (Auto) 1% (0-3) Neutrophils # (Auto) 3.7x10^3uL (1.8-7.7) Lymphocytes # (Auto) 3.3x10^3/uL (1.0-4.8) Monocytes # (Auto) 0.5x10^3/uL (0.0-1.1) Eosinophils # (Auto) 0.1x10^3/uL (0.0-0.7) Basophils # (Auto) 0.1x10^3/uL (0.0-0.2) Prothrombin Time 12.6SEC (11.7-14.0) Prothromb Time International Ratio 1.0 (0.8-1.1) Sodium Level 142mmol/L (136-145) Potassium Level 4.2mmol/L (3.5-5.1) Chloride Level 106mmol/L (98-107) Carbon Dioxide Level 22mmol/L (21-32) Anion Gap 14 (6-14) Blood Urea Nitrogen 13mg/dL (8-26) Creatinine 1.1mg/dL (0.7-1.3) Estimated GFR (Cockcroft-Gault) 67.2 BUN/Creatinine Ratio 12 (6-20) Glucose Level 154mg/dL (70-99) Calcium Level 9.6mg/dL (8.5-10.1) Total Bilirubin 0.3mg/dL (0.2-1.0) Aspartate Amino Transf (AST/SGOT) 42U/L (15-37) Alanine Aminotransferase (ALT/SGPT) 49U/L (16-63) Alkaline Phosphatase 54U/L (46-116) Total Protein 7.7g/dL (6.4-8.2) Albumin 4.3g/dL (3.4-5.0) Albumin/Globulin Ratio 1.3 (1.0-1.7) Ethyl Alcohol Level 162mg/dL (0-10) Glucose (Fingerstick) 101mg/dL (70-99) Laboratory Tests Test 10/29/16 22:00 10/30/16 07:37 White Blood Count 7.7x10^3/uL (4.0-11.0) Red Blood Count 5.40x10^6/uL (4.30-5.70) Hemoglobin 16.7g/dL (13.0-17.5) Hematocrit 49.5% (39.0-53.0) Mean Corpuscular Volume 92fL (79-100) Mean Corpuscular Hemoglobin 31pg (25-35) Mean Corpuscular Hemoglobin Concent 34g/dL (31-37) Red Cell Distribution Width 13.1% (11.5-14.5) Platelet Count 161x10^3/uL (140-400) Neutrophils (%) (Auto) 48% (31-73) Lymphocytes (%) (Auto) 44% (24-48) Monocytes (%) (Auto) 6% (0-9) Eosinophils (%) (Auto) 1% (0-3) Basophils (%) (Auto) 1% (0-3) Neutrophils # (Auto) 3.7x10^3uL (1.8-7.7) Lymphocytes # (Auto) 3.3x10^3/uL (1.0-4.8) Monocytes # (Auto) 0.5x10^3/uL (0.0-1.1) Eosinophils # (Auto) 0.1x10^3/uL (0.0-0.7) Basophils # (Auto) 0.1x10^3/uL (0.0-0.2) Prothrombin Time 12.6SEC (11.7-14.0) Prothromb Time International Ratio 1.0 (0.8-1.1) Sodium Level 142mmol/L (136-145) Potassium Level 4.2mmol/L (3.5-5.1) Chloride Level 106mmol/L (98-107) Carbon Dioxide Level 22mmol/L (21-32) Anion Gap 14 (6-14) Blood Urea Nitrogen 13mg/dL (8-26) Creatinine 1.1mg/dL (0.7-1.3) Estimated GFR (Cockcroft-Gault) 67.2 BUN/Creatinine Ratio 12 (6-20) Glucose Level 154mg/dL (70-99) Calcium Level 9.6mg/dL (8.5-10.1) Total Bilirubin 0.3mg/dL (0.2-1.0) Aspartate Amino Transf (AST/SGOT) 42U/L (15-37) Alanine Aminotransferase (ALT/SGPT) 49U/L (16-63) Alkaline Phosphatase 54U/L (46-116) Total Protein 7.7g/dL (6.4-8.2) Albumin 4.3g/dL (3.4-5.0) Albumin/Globulin Ratio 1.3 (1.0-1.7) Ethyl Alcohol Level 162mg/dL (0-10) Glucose (Fingerstick) 101mg/dL (70-99) VTE Prophylaxis Ordered VTE Prophylaxis Devices: Yes VTE Pharmacological Prophylaxi: Yes Assessment/Plan Assessment/Plan 1. OPen left clavicular fx s/p Open treatment with internal fixation left clavicle shaft fracture. Debridement for open fracture including fragments of devitalized bone. 2. ALcohol intox POA PLAN; Await from sx POst op labs\ benzos prn WOF withdrawal Keep tele FERNIE BAKER MD Oct 30, 2016 12:27
[2016-10-30] MEDS ORDERED: ALPRAZOLAM 0.25 MG TABLET PO PRN (12:30)
[2016-10-30] MEDS: HYDROCODONE/APAP 7.5/325MG TABLET. PO PRN ×2 (15:56→22:36)
--- NOTE | 2016-10-30 15:59 | OP ---
DATE OF SURGERY: 10/30/2016 PREOPERATIVE DIAGNOSIS: Open left clavicle shaft fracture. POSTOPERATIVE DIAGNOSIS: Open left clavicle shaft fracture. PROCEDURE: 1. Open treatment with internal fixation, left clavicle shaft fracture. 2. Debridement for open fracture, left clavicle, including fascia and fragments of bone. SURGEON: Kaz Novoa MD IPHONE DEVELOPER: Kimi Beth PA-C ANESTHESIA: General. ESTIMATED BLOOD LOSS: 50 mL. COMPLICATIONS: None. SPECIMENS: None. DRAINS: None. INDICATIONS: The patient is a 66-year-old man, who fell yesterday and sustained an open clavicle shaft fracture. This is a Gustilo grade 1 open fracture with a small puncture wound over the fracture site. He was admitted and placed on antibiotics and scheduled for urgent surgery. He and I talked about risks and benefits of proceeding with an operative treatment for this. For closed fractures, nonoperative treatment is a reasonable approach, although generally outcomes are better with operative fixation, with a faster return to recovery, faster union time, and generally better patient satisfaction scores. The patient plays golf and would like to return to his usual activity and is otherwise retired and is right handed. He does have some left rib fractures on the same side. 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 He has been doing therapy for his shoulder already. I do think operative fixation will give him a better chance at union, less chance of infection or nonunion with this open fracture, and allow him to resume his shoulder range of motion exercises earlier than if we treated this nonoperatively. We talked about the potential risks of surgery such as infection or nonunion, need for hardware removal, neurovascular injury, bleeding, scarring, and I also described to him the expected area of numbness in the supraclavicular nerve distribution. All of his questions about surgery were answered and he desired to proceed. Written consent was obtained. DESCRIPTION OF PROCEDURE: The patient was identified in the preoperative holding area. The correct left shoulder was noted by me. He was taken to the operating room where a general anesthetic was used. Ancef was given preoperatively intravenously. He was positioned in the beach chair position with the head carefully positioned, and the bony prominences padded. SCDs were used on the calves. The large image intensifier was brought in and positioned in the shoulder and clavicle examined under fluoroscopic views. Intraoperative fluoroscopy was used and all of the images were interpreted intraoperatively by me. Once we had confirmed the C-arm position, it was brought back out, and then the limb was prepped sterilely circumferentially and then draped with the arm draped free in an impervious stockinette over the arm. A longitudinal incision was made over the clavicle shaft. Sharp dissection was used and Bovie electrocautery was used as needed for hemostasis. The suprapatellar nerves were divided. Local anesthetic with epinephrine, 0.25% Marcaine with epinephrine, was injected into the incision edges. Bovie electrocautery was used in the pectoral and trapezius fascia, and then the fracture was exposed. The fracture was easily identified and markedly displaced and unstable. There were several comminuted fragments. There was devitalized bone at the area of the open fracture. I debrided some of the devitalized bone, using a rongeur. I cleaned up the edges of the puncture wound with a rongeur. I then did copious irrigation of the open fracture using saline. After thorough irrigation, then I completed the exposure of the clavicle ends and proceeded with the fixation. The 2 ends were mobilized enough to allow bone clamps to be used to restore the overall anatomy and alignment of the clavicle. Unfortunately, the clavicle is so comminuted that essentially no contact of the original fracture ends was possible except for a 1 to 2 mm section at the posterior aspect. There was extensive comminution in a butterfly triangular shape coming anteriorly, which completely obliterated the cortical construct. I had Kimi help hold the elbow elevated to reduce the fracture, and we used a combination of bone clamps to help stabilize the fracture. It was also too comminuted to allow any sort of K-wire preliminary fixation. I used the [employer]ynthes stainless steel 3.5 mm dynamic compression plate and contoured plate to fit the anterior-inferior aspect of the clavicle. All of the incision and the fixation was done from this anterior-inferior approach to achieve multiple benefits, such as increased screw length, increased strength of the construct, less chance for mechanical complications of the hardware in the future, and safe for drill bit positioning so as to avoid neurovascular injury. I used a large plate good to contour the plate to fit that anterior-inferior aspect of the clavicle, and then Kimi and I used a combination of bone clamps and manipulation of the elbow and shoulder to clamp the plate back to the proximal and distal fragments. The interfragmentary comminution was far too extensive to allow any interfragmentary screw fixation. There was about a 2-3 cm gap along the anterior cortex, and each of the fragments was less than 1 cm in diameter. Once the overall alignment of the clavicle was achieved, I then used bicortical nonlocking screw fixation to secure the plate in a preliminary fashion to the bone. This helped to compress the plate to the bone. I used the 2.5 mm drill bit, and then placed 3.5 mm cortex screws into the medial and lateral fragments for good compression of the plate to the bone and overall general alignment. I then proceeded with locking fixation in the proximal and distal fragments for secure fixation. Again, all the screws were placed anterior to posterior, which gives good screw length, especially in the lateral aspect of the clavicle where the screw lengths were 30-32 mm. The image intensifier was brought in after the reduction and fixation, and the position of the plate and screws was confirmed. There was no impingement in the AC joint and the overall alignment was excellent. I did a final irrigation, and then began to bone graft the area of bone defect. There is a piece of vascularized bone fragment that is still vital, and should not be debrided as it has good blood flow, but was not large enough for screw fixation. I used sutures to reapproximate this fragment up underneath the plate as close to the original position as possible using #1 Vicryl suture. I also used crushed cancellous bone graft in the defect, and filled the defect and tamped the crushed cancellous bone graft into place. This achieved bony continuity across the previous defect. The incision was now closed in layers. #1 PDS was used in a [id number] fashion in the trapezial and pectoralis fascia to overlie the original fracture site of the entire clavicle shaft. Subcutaneous tissues were closed with #1 Vicryl and then 2-0 Vicryl. I had Kimi close the subcutaneous tissues with 2-[address] shreya in the skin. She injected additional local anesthetic. Xeroform and sterile dressings were applied. An arm sling will be used. Needle and sponge counts were correct. There were no apparent complications. Kaz Novoa MD DR: ZAIN/janny JOB#: [id number] / [id number]
[2016-10-30] MEDS: CHOLECALCIFEROL (VITAMIN D3) 1,000 UNIT TABLET PO SCH (17:02)
[2016-10-30] MEDS: MULTIVITAMIN with MINERAL TABLET. PO SCH (17:02)
[2016-10-30] MEDS: METFORMIN XR 500 MG TAB.ER.24H PO SCH (17:02)
[2016-10-30] MEDS: CEFAZOLIN 2GM PREMIX 50 ML IV SCH ×2 (17:02→21:15)
[2016-10-30] MEDS: LISINOPRIL 10 MG TABLET PO SCH (17:03)
[2016-10-30] MEDS ORDERED: ATORVASTATIN CALCIUM 20 MG TABLET PO SCH (21:00)
[2016-10-31] MEDS: CEFAZOLIN 2GM PREMIX 50 ML IV SCH (02:50)
[2016-10-31 03:14] VITALS: BP 110/67
[2016-10-31 05:17] LABS: BASO % 0 % (0-3); EOS % 0 % (0-3); HEMATOCRIT 40.4 % (39.0-53.0); HEMOGLOBIN 13.8 g/dL (13.0-17.5); LYMPH % 9 % (24-48); MEAN CORPUSCULAR HEMOGLOBIN 31 pg (25-35); MEAN CORPUSCULAR HGB CONC 34 g/dL (31-37); MEAN CORPUSCULAR VOLUME 90 fL (79-100); MONO % 7 % (0-9); NEUT % 84 % (31-73); PLATELET COUNT 129 x10^3/uL (140-400); RED BLOOD COUNT 4.51 x10^6/uL (4.30-5.70); RED CELL DISTRIBUTION WIDTH 13.6 % (11.5-14.5); WHITE BLOOD COUNT 11.8 x10^3/uL (4.0-11.0)
[2016-10-31 05:47] LABS: CALCIUM 8.2 mg/dL (8.5-10.1); CREATININE 0.8 mg/dL (0.7-1.3); POTASSIUM 3.9 mmol/L (3.5-5.1)
[2016-10-31] MEDS ORDERED: MAGNESIUM HYDROXIDE 2,400 MG/30 ML ORAL.SUSP. PO PRN (06:00)
[2016-10-31 07:00] VITALS: BP 150/76
[2016-10-31] MEDS ORDERED: ASPIRIN 325 MG TABLET PO SCH (08:00)
[2016-10-31] MEDS ORDERED: SENNOSIDES/DOCUSATE 8.6/50MG TABLET. PO SCH (09:00)
[2016-10-31] MEDS: METFORMIN XR 500 MG TAB.ER.24H PO SCH (09:45)
[2016-10-31] MEDS: HYDROCODONE/APAP 7.5/325MG TABLET. PO PRN ×2 (09:46→14:10)
[2016-10-31] MEDS: MULTIVITAMIN with MINERAL TABLET. PO SCH (09:46)
[2016-10-31] MEDS: CHOLECALCIFEROL (VITAMIN D3) 1,000 UNIT TABLET PO SCH (09:46)
[2016-10-31] MEDS: LISINOPRIL 10 MG TABLET PO SCH (09:46)
[2016-10-31 11:00] VITALS: BP 138/82
[2016-10-31 11:42] LABS: HEMATOCRIT 42.7 % (39.0-53.0); HEMOGLOBIN 14.5 g/dL (13.0-17.5)
--- NOTE | 2016-10-31 12:44 | PDOC3 ---
Discharge Summary [facility] Date of Admission: Oct 29, 2016 Discharge Date: Oct 31, 2016 Admitting Diagnosis 1. OPen left clavicular fx s/p Open treatment with internal fixation left clavicle shaft fracture. Debridement for open fracture including fragments of devitalized bone. 2. ALcohol intox POA Problems: Final Diagnosis Problems Medical Problems: (1) Fracture, clavicle, shaft, open Status: Acute CONSULTS dr. Novoa Procedures Open treatment with internal fixation left clavicle shaft fracture. Debridement for open fracture including fragments of devitalized bone. Brief Hospital Course Mr. Turner is a 66 old M, came to hosp post fall playing golf and was found open left clavicular fx, s/p ORIF and I AND D dc home, pain control. home exercise. dc time 35min HEENT: PERRLA Lungs: Clear to auscultation Heart: S1S2, RRR, no thrills Cardiovascular: S1, S2 Abdomen: Normal bowel sounds, Soft, No tenderness, No hepatosplenomegaly, No masses Rectal Exam: not examined Extremities: Other (left clavicle dressing) Skin: No rashes, No breakdown, No significant lesion Neuro: Normal gait, Normal speech, Strength at 5/5 X4 ext, Normal tone, Sensation intact, Cranial nerves 3-12 NL, Reflexes 2+ Psych/Mental Status: Mental status NL, Mood NL Patient History: Unknown Problems: Disposition home CONDITION AT DISCHARGE: Improved Diet regular Scheduled Atorvastatin Calcium (Atorvastatin Calcium) 20 MG PO HS (Reported) Cholecalciferol (Vitamin D3) (Vitamin D) 1 CAP PO DAILY (Reported) Lisinopril (Lisinopril) 10 MG PO DAILY (Reported) Metformin Hcl (Metformin Hcl Er) 500 MG PO DAILYWBKFT (Reported) Multivitamin (Multi-Day Vitamins) 1 TAB PO DAILY (Reported) Miscellaneous Medications Icosapent Ethyl (Vascepa) 2 GM PO (Reported) Follow Up dr. Novoa in 2 weeks MARYSE SHORT MD Oct 31, 2016 12:44
--- NOTE | 2016-10-31 12:46 | PDOC ---
PROGRESS NOTES Subjective Subjective Doing well. Pain controlled. Objective Vital Signs Vital Signs Date Time Temp Pulse Resp B/P Pulse Ox O2 Delivery O2 Flow Rate FiO2 10/31/16 11:04 Room Air 10/31/16 11:00 97.9 71 18 138/82 97 97.9 10/30/16 11:36 10 Physical Exam Dressing was removed and incision looks benign. There was some bloody drainage on the dressing, but no active drainage during dressing change. Elbow and wrist ROM normal. Able to make a fist, without pain or difficulty. Neurovascularly intact. Labs Laboratory Tests Test 10/29/16 22:00 10/30/16 07:37 10/31/16 03:05 10/31/16 11:25 White Blood Count 7.7x10^3/uL (4.0-11.0) 11.8x10^3/uL (4.0-11.0) Red Blood Count 5.40x10^6/uL (4.30-5.70) 4.51x10^6/uL (4.30-5.70) Hemoglobin 16.7g/dL (13.0-17.5) 13.8g/dL (13.0-17.5) 14.5g/dL (13.0-17.5) Hematocrit 49.5% (39.0-53.0) 40.4% (39.0-53.0) 42.7% (39.0-53.0) Mean Corpuscular Volume 92fL (79-100) 90fL (79-100) Mean Corpuscular Hemoglobin 31pg (25-35) 31pg (25-35) Mean Corpuscular Hemoglobin Concent 34g/dL (31-37) 34g/dL (31-37) 34g/dL (31-37) Red Cell Distribution Width 13.1% (11.5-14.5) 13.6% (11.5-14.5) Platelet Count 161x10^3/uL (140-400) 129x10^3/uL (140-400) Neutrophils (%) (Auto) 48% (31-73) 84% (31-73) Lymphocytes (%) (Auto) 44% (24-48) 9% (24-48) Monocytes (%) (Auto) 6% (0-9) 7% (0-9) Eosinophils (%) (Auto) 1% (0-3) 0% (0-3) Basophils (%) (Auto) 1% (0-3) 0% (0-3) Neutrophils # (Auto) 3.7x10^3uL (1.8-7.7) 9.9x10^3uL (1.8-7.7) Lymphocytes # (Auto) 3.3x10^3/uL (1.0-4.8) 1.0x10^3/uL (1.0-4.8) Monocytes # (Auto) 0.5x10^3/uL (0.0-1.1) 0.8x10^3/uL (0.0-1.1) Eosinophils # (Auto) 0.1x10^3/uL (0.0-0.7) 0.0x10^3/uL (0.0-0.7) Basophils # (Auto) 0.1x10^3/uL (0.0-0.2) 0.0x10^3/uL (0.0-0.2) Prothrombin Time 12.6SEC (11.7-14.0) Prothromb Time International Ratio 1.0 (0.8-1.1) Sodium Level 142mmol/L (136-145) 141mmol/L (136-145) Potassium Level 4.2mmol/L (3.5-5.1) 3.9mmol/L (3.5-5.1) Chloride Level 106mmol/L (98-107) 105mmol/L (98-107) Carbon Dioxide Level 22mmol/L (21-32) 26mmol/L (21-32) Anion Gap 14 (6-14) 10 (6-14) Blood Urea Nitrogen 13mg/dL (8-26) 11mg/dL (8-26) Creatinine 1.1mg/dL (0.7-1.3) 0.8mg/dL (0.7-1.3) Estimated GFR (Cockcroft-Gault) 67.2 97.0 BUN/Creatinine Ratio 12 (6-20) Glucose Level 154mg/dL (70-99) 128mg/dL (70-99) Calcium Level 9.6mg/dL (8.5-10.1) 8.2mg/dL (8.5-10.1) Total Bilirubin 0.3mg/dL (0.2-1.0) Aspartate Amino Transf (AST/SGOT) 42U/L (15-37) Alanine Aminotransferase (ALT/SGPT) 49U/L (16-63) Alkaline Phosphatase 54U/L (46-116) Total Protein 7.7g/dL (6.4-8.2) Albumin 4.3g/dL (3.4-5.0) Albumin/Globulin Ratio 1.3 (1.0-1.7) Ethyl Alcohol Level 162mg/dL (0-10) Glucose (Fingerstick) 101mg/dL (70-99) 25-Hydroxy Vitamin D Total 24.4ng/mL (30.0-100.0) Laboratory Tests Test 10/31/16 03:05 10/31/16 11:25 White Blood Count 11.8x10^3/uL (4.0-11.0) Red Blood Count 4.51x10^6/uL (4.30-5.70) Hemoglobin 13.8g/dL (13.0-17.5) 14.5g/dL (13.0-17.5) Hematocrit 40.4% (39.0-53.0) 42.7% (39.0-53.0) Mean Corpuscular Volume 90fL (79-100) Mean Corpuscular Hemoglobin 31pg (25-35) Mean Corpuscular Hemoglobin Concent 34g/dL (31-37) 34g/dL (31-37) Red Cell Distribution Width 13.6% (11.5-14.5) Platelet Count 129x10^3/uL (140-400) Neutrophils (%) (Auto) 84% (31-73) Lymphocytes (%) (Auto) 9% (24-48) Monocytes (%) (Auto) 7% (0-9) Eosinophils (%) (Auto) 0% (0-3) Basophils (%) (Auto) 0% (0-3) Neutrophils # (Auto) 9.9x10^3uL (1.8-7.7) Lymphocytes # (Auto) 1.0x10^3/uL (1.0-4.8) Monocytes # (Auto) 0.8x10^3/uL (0.0-1.1) Eosinophils # (Auto) 0.0x10^3/uL (0.0-0.7) Basophils # (Auto) 0.0x10^3/uL (0.0-0.2) Sodium Level 141mmol/L (136-145) Potassium Level 3.9mmol/L (3.5-5.1) Chloride Level 105mmol/L (98-107) Carbon Dioxide Level 26mmol/L (21-32) Anion Gap 10 (6-14) Blood Urea Nitrogen 11mg/dL (8-26) Creatinine 0.8mg/dL (0.7-1.3) Estimated GFR (Cockcroft-Gault) 97.0 Glucose Level 128mg/dL (70-99) Calcium Level 8.2mg/dL (8.5-10.1) 25-Hydroxy Vitamin D Total 24.4ng/mL (30.0-100.0) Assessment Assessment POD #1 left open clavicle ORIF Problems: Plan Plan of Care Begin Calcium and Vitamin D intake with Citracal 2 caps, twice daily. Continue pendulum exercises and gentle ROM of shoulder, as pain allows. Continue ROM of wrist and elbow. Aquacel dressing to incision. Patient is ready for discharge to home. Followup with [facility] in 10-14 days. ALEKSANDR MARTIN Oct 31, 2016 12:46
[2016-10-31] MEDS ORDERED: BISACODYL 10 MG SUPP.RECT PR PRN (16:00)
== END 2016-10-31 15:10 | disposition home or self-care (01) | DRG 517 ==
LOC: ER 22:06 → 4 NORTH 23:15
PROVIDERS: ADMIT Internal Medicine; ATTEND Internal Medicine
PROC: 0PBB0ZZ Excision of Left Clavicle, Open Approach (ICD-10-PCS; 2016-10-30)
PROC: 0PHB04Z Insertion of Internal Fixation Device into Left Clavicle, Open Approach (ICD-10-PCS; principal; 2016-10-30 09:00)
DX: S42.002B Fracture of unspecified part of left clavicle, initial encounter for open fracture (principal); F10.129 Alcohol abuse with intoxication, unspecified; W01.0XXA Fall on same level from slipping, tripping and stumbling without subsequent striking against object, initial encounter; E11.9 Type 2 diabetes mellitus without complications; E78.00 Pure hypercholesterolemia, unspecified; E78.5 Hyperlipidemia, unspecified; I10 Essential (primary) hypertension; Y93.53 Activity, golf; Y92.89 Other specified places as the place of occurrence of the external cause; Z88.0 Allergy status to penicillin
CPT/HCPCS: 36415; 71100; 73000; 76000; 80048; 80053; 82306; 82947; 85014; 85018; 85027; 85610; 90732; 93005; 96365; 96375; C1713; G0480; J0131; J0330; J0690; J1100; J2270; J2405; J2704; J3010; J7030; J7120; 97150; 99285-25